=== PATIENT | female | born 1950 | race Native Hawaiian/Other Pacific Islander ===

== ENCOUNTER 2017-03-31 08:54 | Outpatient (CLI) | payer OTHER ==
[~2017-03-31 08:54] MED LIST: LEVO0.0218 PO
== END 2017-03-31 09:55 | disposition home or self-care (01) ==
LOC: MAMMO 08:54
DX: Z12.31 Encounter for screening mammogram for malignant neoplasm of breast (principal)

== ENCOUNTER 2018-05-18 08:49 | Outpatient (CLI) | payer OTHER | END 2018-05-18 20:48 | disposition home or self-care (01) | LOC: MAMMO 08:49 | DX: Z12.31 Encounter for screening mammogram for malignant neoplasm of breast (principal) ==

== ENCOUNTER 2019-05-24 08:15 | Outpatient (CLI) | payer OTHER | END 2019-05-24 19:03 | disposition home or self-care (01) | LOC: MAMMO 08:15 | DX: Z12.31 Encounter for screening mammogram for malignant neoplasm of breast (principal) ==

== ENCOUNTER 2020-01-12 15:17 | Outpatient (CLI) | payer OTHER | END 2020-01-12 19:11 | disposition home or self-care (01) | LOC: RAD 15:17 | DX: M79.672 Pain in left foot (principal) ==

== ENCOUNTER 2020-05-29 08:55 | Outpatient (CLI) | payer OTHER | END 2020-05-29 19:27 | disposition home or self-care (01) | LOC: MAMMO 08:55 | PROVIDERS: ATTEND Nurse Practitioner | DX: Z12.31 Encounter for screening mammogram for malignant neoplasm of breast (principal) ==

== ENCOUNTER 2020-07-03 09:30 | Outpatient (CLI) | payer OTHER | END 2020-07-03 20:45 | disposition home or self-care (01) | LOC: RAD 09:30 | PROVIDERS: ATTEND Registered Nurse | DX: M25.551 Pain in right hip (principal) ==

== ENCOUNTER 2021-06-11 08:30 | Outpatient (CLI) | payer OTHER | END 2021-06-11 18:47 | disposition home or self-care (01) | LOC: MAMMO 08:30 | PROVIDERS: ATTEND Registered Nurse | DX: Z12.31 Encounter for screening mammogram for malignant neoplasm of breast (principal) ==

== ENCOUNTER 2022-06-17 08:55 | Outpatient (CLI) | payer OTHER | END 2022-06-17 19:44 | disposition home or self-care (01) | LOC: MAMMO 08:55 | PROVIDERS: ATTEND Registered Nurse | DX: Z12.31 Encounter for screening mammogram for malignant neoplasm of breast (principal) ==